=== PATIENT | male | born 1985 | race Caucasian/White ===

== ENCOUNTER 2017-04-12 12:27 | Emergency (ER) | payer OTHER ==
[~2017-04-12] VITALS: Ht 167.6 cm; Wt 98.5 kg
[2017-04-12 12:36] VITALS: BP 145/80; PULSE 71; RESP 16; TEMP 98.2; O2SAT 98
[2017-04-12] MEDS ORDERED: BUPR150CR PO (12:56)
[2017-04-12] MEDS ORDERED: SODIUM CHLOR 0.9% 1000 ML INJ 1,000 ML IV SCH (12:59)
[2017-04-12] MEDS ORDERED: ONDANSETRON HCL 4 MG/2 ML VIAL IVP ONE (13:00)
[2017-04-12] MEDS ORDERED: SODIUM CHLORIDE 0.9% FLUSH 10 ML FLUSH IV FLUSH PRN (13:00)
--- NOTE | 2017-04-12 13:01 | PD ---
HPI Chief Complaint: GI Complaint Time Seen by Provider: 12:55 Travel History International Travel<30 days: No Contact w/Intl Traveler<30days: No Traveled to known affect area: No History of Present Illness HPI This is a 31-year-old male who presents to the emergency Department with onset of vomiting that started last evening after he ate dominoes. He says initially he felt like his throat was closing and that food was getting stuck in his throat and then he started to have vomiting. He says he vomited today as well and here in the waiting room. He denies any abdominal pain, fevers, chills or diarrhea. He denies any alcohol use. PFSH Past Medical History Hx Anticoagulant Therapy: No ADHD: Yes Diabetes: No Psychiatric: Yes (PTSD) Past Surgical History Abdominal Surgery: Yes (PYLORIC STENOSIS/INFANT) Cholecystectomy: Yes Tonsillectomy: Yes Other Surgery: Yes (NASAL) Social History Alcohol Use: Yes (OCC) Tobacco Use: Yes (<1/2 PPD) Substance Use: Yes (MARIJUANA OCC) Allergies-Medications (Allergen,Severity, Reaction): Coded Allergies: Codeine (Verified Adverse Reaction, Mild, VOMITING, 04/12/17) Reglan (Verified Adverse Reaction, Mild, "LOOPY", 04/12/17) Reported Meds & Prescriptions Reported Meds & Active Scripts Active Reported Wellbutrin SR 12 HR (Bupropion HCl) 150 Mg Tab 150 Mg PO Q12HR Review of Systems Except as stated in HPI: all other systems reviewed are Neg Physical Exam Narrative GENERAL:Well appearing, no acute distress SKIN: Focused skin assessment warm and dry. HEAD: Atraumatic. Normocephalic. EYES: Pupils equal and round. No injection or drainage. ENT: Moist mucous membranes NECK: Trachea midline. CARDIOVASCULAR: Regular rate and rhythm. No murmur appreciated. RESPIRATORY: Clear to auscultation. Breath sounds equal bilaterally. GASTROINTESTINAL: Abdomen soft, non-tender, nondistended. MUSCULOSKELETAL: No obvious deformities. NEUROLOGICAL: Awake and alert. No obvious cranial nerve deficits. Moving all extremities. PSYCHIATRIC: Appropriate mood and affect; insight and judgment normal. Data Data Last Documented VS Vital Signs Date Time Temp Pulse Resp B/P Pulse Ox O2 Delivery O2 Flow Rate FiO2 04/12/17 12:36 98.2 71 16 145/80 98 Orders Complete Blood Count With Diff (04/12/17 12:59) Comprehensive Metabolic Panel (04/12/17 12:59) Lipase (04/12/17 12:59) Iv Access Insert/Monitor (04/12/17 12:59) Ecg Monitoring (04/12/17 12:59) Oximetry (04/12/17 12:59) Ondansetron Inj (Zofran Inj) (04/12/17 13:00) Sodium Chlor 0.9% 1000 Ml Inj (Ns 1000 M (04/12/17 12:59) Sodium Chloride 0.9% Flush (Ns Flush) (04/12/17 13:00) Abdomen, Kub Only (04/12/17 ) Labs Laboratory Tests Test 04/12/17 13:00 White Blood Count 6.3 TH/MM3 Red Blood Count 5.36 MIL/MM3 Hemoglobin 15.2 GM/DL Hematocrit 46.3 % Mean Corpuscular Volume 86.4 FL Mean Corpuscular Hemoglobin 28.4 PG Mean Corpuscular Hemoglobin 32.9 % Concent Red Cell Distribution Width 13.7 % Platelet Count 260 TH/MM3 Mean Platelet Volume 7.9 FL Neutrophils (%) (Auto) 49.5 % Lymphocytes (%) (Auto) 32.9 % Monocytes (%) (Auto) 7.0 % Eosinophils (%) (Auto) 9.4 % Basophils (%) (Auto) 1.2 % Neutrophils # (Auto) 3.1 TH/MM3 Lymphocytes # (Auto) 2.1 TH/MM3 Monocytes # (Auto) 0.4 TH/MM3 Eosinophils # (Auto) 0.6 TH/MM3 Basophils # (Auto) 0.1 TH/MM3 CBC Comment DIFF FINAL Differential Comment Sodium Level 143 MEQ/L Potassium Level 4.6 MEQ/L Chloride Level 109 MEQ/L Carbon Dioxide Level 29.7 MEQ/L Anion Gap 4 MEQ/L Blood Urea Nitrogen 14 MG/DL Creatinine 1.00 MG/DL Estimat Glomerular Filtration 88 ML/MIN Rate Random Glucose 90 MG/DL Calcium Level 9.3 MG/DL Total Bilirubin 0.4 MG/DL Aspartate Amino Transf 14 U/L (AST/SGOT) Alanine Aminotransferase 27 U/L (ALT/SGPT) Alkaline Phosphatase 78 U/L Total Protein 6.8 GM/DL Albumin 3.5 GM/DL Lipase 197 U/L [facility] Medical Decision Making Medical Screen Exam Complete: Yes Emergency Medical Condition: Yes Interpretation(s) Afebrile, no tachycardia No leukocytosis Electrolytes are reassuring Lipase is normal Last 24 hours Impressions Abdomen X-Ray 04/12/17 0000 Signed Impressions: Service Date/Time: Wednesday, April 12, 2017 13:12 - CONCLUSION: No acute abdominal abnormality is identified. Haile Hinkle MD Differential Diagnosis Gastroenteritis, food poisoning, bowel obstruction Narrative Course This is a 31-year-old male who presents to the emergency department having had onset of vomiting after eating dominoes yesterday. His symptoms are consistent with food poisoning. He has a very benign abdomen and looks very well. He has had some abdominal surgeries in the past about structural was on the differential however given his benign exam I thought the risk of radiation from CT was significant and we will defer at this time. KUB was reassuring. Labs are unremarkable. He feels much better after IV fluids and Zofran. I think he can be discharged home and if he feels worse, continues to vomit or develops abdominal pain he'll return at which time we'll consider CT imaging. Diagnosis Primary Impression: Food poisoning Qualified Code: T62.94XA - Food poisoning, undetermined intent, initial encounter Patient Instructions: General Instructions Additional Instructions: If you develop lightheadedness, dizziness, persistent vomiting, inability to eat , or severe abdominal pain return to the emergency department. Followup with your primary care physician in 2-3 days if your symptoms have not resolved. Wash your hands agressively after using the restroom as to not spread your illness to others. Do not return to work until your symptoms have resolved. Take Zofran as needed for nausea. Med/Other Pt SpecificInfo: Prescription(s) given Scripts Ondansetron Odt (Zofran Odt)4 Mg Tab4 Mg SL Q6HR PRN (Nausea/Vomiting) #15 TAB Prov:Brittney Munoz MD 04/12/17 Disposition: 01 DISCHARGE HOME Condition: Stable Brittney Munoz MD Apr 12, 2017 13:01
[2017-04-12 13:20] LABS: AUTOMATED NEUTROPHIL # 3.1 TH/MM3 (1.8-7.7); BASOPHIL # 0.1 TH/MM3 (0-0.2); BASOPHIL % 1.2 % (0.0-2.0); EOSINOPHIL # 0.6 TH/MM3 (0-0.4); EOSINOPHIL % 9.4 % (0.0-4.0); HEMATOCRIT 46.3 % (39.0-51.0); HEMO FLAGS DIFF FINAL; LYMPH % 32.9 % (9.0-44.0); LYMPHOCYTE # 2.1 TH/MM3 (1.0-4.8); MEAN CELL VOLUME 86.4 FL (80.0-100.0); MEAN CORPUSCULAR HEMOGLOBIN 28.4 PG (27.0-34.0); MEAN CORPUSCULAR HGB CONC 32.9 % (32.0-36.0); NEUT % 49.5 % (16.0-70.0); PLATELET COUNT 260 TH/MM3 (150-450); RED BLOOD COUNT 5.36 MIL/MM3 (4.50-5.90); RED CELL DISTRIBUTION WIDTH 13.7 % (11.6-17.2); WHITE BLOOD COUNT 6.3 TH/MM3 (4.0-11.0)
[2017-04-12 13:27] LABS: CHLORIDE 109 MEQ/L (98-107); POTASSIUM 4.6 MEQ/L (3.5-5.1); SODIUM (NA) 143 MEQ/L (136-145)
[2017-04-12 13:31] LABS: ANION GAP 4 MEQ/L (5-15); BICARBONATE 29.7 MEQ/L (21.0-32.0); BLOOD UREA NITROGEN 14 MG/DL (7-18)
[2017-04-12 13:33] LABS: ALT (GPT) 27 U/L (12-78)
[2017-04-12 13:34] LABS: AST (GOT) 14 U/L (15-37); GLOMERULAR FILTRATION RATE 88 ML/MIN (>89)
[2017-04-12 13:35] LABS: TOTAL BILIRUBIN ADULT 0.4 MG/DL (0.2-1.0)
[2017-04-12 13:36] LABS: ALKALINE PHOSPHATASE 78 U/L (45-117)
--- NOTE | 2017-04-12 13:37 | RADRPT ---
EXAM DATE/TIME: 04/12/2017 13:12 [facility] COMPARISON: No previous studies available for comparison. INDICATIONS : Nausea and vomiting. MEDICAL HISTORY : Pyloric stenosis, SURGICAL HISTORY : Cholecystectomy. ENCOUNTER: Initial ACUITY: 2 days PAIN SCORE: 0/10 LOCATION: Abdomen FINDINGS: Supine views of the abdomen demonstrate air within small and large bowel in a nonobstructive pattern. No organomegaly or abnormal calcifications are seen. No abnormal mass effect is appreciated. The vis ualized bones demonstrates no abnormality. Cholecystectomy clips are present. CONCLUSION: No acute abdominal abnormality is identified. Haile Hinkle MD on April 12, 2017 at 13:34 Board Certified Radiologist. This report was verified electronically.
[2017-04-12] MEDS ORDERED: ZOFR4TAB3 SL (14:07)
== END 2017-04-12 14:10 | disposition home or self-care (01) ==
LOC: PHED 12:27
DX: T62.8X1A Toxic effect of other specified noxious substances eaten as food, accidental (unintentional), initial encounter (principal); F17.210 Nicotine dependence, cigarettes, uncomplicated; F12.90 Cannabis use, unspecified, uncomplicated
CPT/HCPCS: 74000; 80053; 83690; 85025; 96361; 96374; 99284; J2405; J7030